=== PATIENT | female | born 1950 | race Caucasian/White ===

== ENCOUNTER 2017-06-05 08:52 | Day surgery (SDC) | payer MEDICARE, MEDICAID ==
[~2017-06-05] VITALS: Ht 165.1 cm; Wt 139.6 kg
[~2017-06-05 08:52] MED LIST: ADV50250 IH; ASPI-1265 PO; BUPR150T6 PO; CIP500T PO; COR3.125T PO; COU5T PO; DEXL60CA3 PO; METF500T7 PO; METR500T4 PO
[2017-06-05 09:15] VITALS: BP 141/67
[2017-06-05 09:45] VITALS: BP 141/67
[2017-06-05] MEDS ORDERED: albumin (human) 25% 100 ML IV solution IV PRN (09:50)
[2017-06-05] MEDS ORDERED: normal saline 1000ml 1,000 ML IV PRN (09:50)
== END 2017-06-05 10:05 | disposition home or self-care (01) ==
LOC: SSTAY O 08:52
PROVIDERS: ATTEND Radiology Diagnostic Radiology
DX: K74.69 Other cirrhosis of liver (principal); B18.2 Chronic viral hepatitis C; N18.9 Chronic kidney disease, unspecified; I50.9 Heart failure, unspecified; I13.0 Hypertensive heart and chronic kidney disease with heart failure and stage 1 through stage 4 chronic kidney disease, or unspecified chronic kidney disease; E11.22 Type 2 diabetes mellitus with diabetic chronic kidney disease; K21.9 Gastro-esophageal reflux disease without esophagitis; F31.89 Other bipolar disorder; Z88.0 Allergy status to penicillin; Z88.5 Allergy status to narcotic agent; Z79.82 Long term (current) use of aspirin; Z79.84 Long term (current) use of oral hypoglycemic drugs; Z79.01 Long term (current) use of anticoagulants; E66.01 Morbid (severe) obesity due to excess calories
CPT/HCPCS: 76705; J7030; A6257